=== PATIENT | male | born 2000 | race Caucasian/White ===

== ENCOUNTER 2020-08-28 14:12 | Emergency (ER) | payer MEDICARE, OTHER ==
[~2020-08-28] VITALS: Ht 154.9 cm; Wt 73.5 kg
[2020-08-28 14:21] VITALS: BP 134/100
[2020-08-28] MEDS ORDERED: PRED20TA5 PO (15:06)
[2020-08-28] MEDS ORDERED: LIDO100S MM (15:06)
[2020-08-28] MEDS ORDERED: DIPH25TA53 PO (15:06)
[2020-08-28 15:12] VITALS: BP 134/100
== END 2020-08-28 15:12 | disposition home or self-care (01) ==
LOC: MED 14:12
DX: T78.40XA Allergy, unspecified, initial encounter (principal); Z90.49 Acquired absence of other specified parts of digestive tract; Z79.899 Other long term (current) drug therapy; Z88.1 Allergy status to other antibiotic agents; X58.XXXA Exposure to other specified factors, initial encounter
CPT/HCPCS: 99283